=== PATIENT | female | born 1930 | race Caucasian/White ===

== ENCOUNTER 2018-02-01 00:43 | Inpatient (IN) | payer MEDICARE, OTHER ==
[~2018-02-01] VITALS: Ht 167.6 cm; Wt 80.0 kg
[2018-02-01 01:24] LABS: BASOPHILS % (AUTO) 0.4 % (0-1); EOSINOPHILS # (AUTO) 0.7 X10'3 (0-0.9); EOSINOPHILS % (AUTO) 6.4 % (0-6); HEMATOCRIT 39.6 % (35.0-45.0); HEMOGLOBIN 12.9 g/dl (12.0-16.0); LYMPHOCYTES # (AUTO) 2.2 X10'3 (1.1-4.8); MEAN CORPUSCULAR HEMOGLOBIN 29.1 PG (27.0-31.0); MEAN CORPUSCULAR HGB CONC 32.7 % (33.0-36.5); MEAN PLATELET VOLUME 11.3 FL (7.4-10.4); MONOCYTES # (AUTO) 0.9 X10'3 (0-0.9); MONOCYTES % (AUTO) 8.4 % (2-12); NEUTROPHILS # (AUTO) 7.1 X10'3 (1.8-7.7); NEUTROPHILS % (AUTO) 64.8 % (42-75); PLATELET COUNT 309 X10'3 (140-440); RED BLOOD COUNT 4.45 X10'6 (4.20-5.60); RED CELL DISTRIBUTION WIDTH 12.9 % (11.5-14.5); WHITE BLOOD COUNT 10.9 X10'3 (4.5-11.0)
[2018-02-01 01:31] LABS: PARTIAL THROMBOPLASTIN TIME 26 SECONDS (22-32)
[2018-02-01 01:37] LABS: ALANINE AMINOTRANSFERASE 18 U/L (12-78); ALBUMIN 3.7 G/DL (3.4-5.0); ALBUMIN/GLOBULIN RATIO 0.9 (1.1-1.5); ALKALINE PHOSPHATASE 114 IU/L (46-116); ANION GAP 18 (8-16); ASPARTATE AMINO TRANSFERASE 21 U/L (10-37); BILIRUBIN,TOTAL 0.4 MG/DL (0.1-1.0); BLOOD UREA NITROGEN 15 MG/DL (7-18); CALCIUM 9.7 MG/DL (8.5-10.1); CHLORIDE 101 MMOL/L (99-107); ETHANOL < 0.010 GM/DL (0.0-0.010); GLUCOSE 158 MG/DL (70-104); POTASSIUM 3.1 MMOL/L (3.5-5.1); SODIUM 143 MMOL/L (135-145); TOTAL CARBON DIOXIDE 23.9 MMOL/L (24-32); TOTAL PROTEIN 7.9 G/DL (6.4-8.2); eGFR 52 ML/MIN
[2018-02-01] MEDS ORDERED: levoFLOXACIN-Levaquin 750MG/D5 150 ML IV STA (03:14)
[2018-02-01] MEDS ORDERED: normal saline 1000ML IV soln IVB ONE ×2 (03:15→05:35)
[2018-02-01] MEDS ORDERED: potassium Cl 10 mEq/100mL bag IV ONE (03:15)
[2018-02-01 03:47] LABS: CLARITY,URINE SLIGHTLY CLOUDY (Clear); COLOR,URINE YELLOW (Yellow); GLUCOSE, URINE NEGATIVE (Neg); KETONES,URINE NEGATIVE (Neg); LEUKOCYTE ESTERASE ,URINE NEGATIVE (Neg); NITRITES, URINE NEGATIVE (Neg); OCCULT BLOOD,URINE NEGATIVE (Neg); PROTEIN,URINE 100 mg/dl (Neg); UROBILINOGEN,URINE 0.2 E.U/dL (0.2-1.0)
[2018-02-01] MEDS ORDERED: NITR100C PO ×2 (03:47→04:29)
[2018-02-01] MEDS ORDERED: OMEP20TA5 PO (03:49)
[2018-02-01 03:50] LABS: UA COLLECTION TYPE STRAIGHT CATH
[2018-02-01] MEDS ORDERED: AMLO5TAB10 (03:50)
[2018-02-01] MEDS ORDERED: CLOP75TA35 PO (03:50)
[2018-02-01] MEDS ORDERED: FERR325T28 PO (03:51)
[2018-02-01] MEDS ORDERED: POTA2TAB6 PO (03:52)
[2018-02-01] MEDS ORDERED: VITA1CAP19 PO (03:54)
[2018-02-01] MEDS ORDERED: MULT-16 PO (03:54)
[2018-02-01 03:55] LABS: AMORPHOUS URATES 1+; BACTERIA,URINE 2+ /HPF (Neg); RBC,URINE 0-2 /HPF (0-2); SQUAMOUS EPITHELIAL CELL,UR MODERATE /LPF (FEW)
[2018-02-01 03:56] LABS: WBC CLUMPS,URINE FEW /HPF (NEGATIVE)
[2018-02-01] MEDS ORDERED: DEXT1DRO6 OP (03:57)
[2018-02-01] MEDS ORDERED: CALC200T29 (03:59)
[2018-02-01] MEDS ORDERED: IBUP200C74 (04:00)
[2018-02-01] MEDS ORDERED: ACET500C5 PO (04:01)
[2018-02-01 04:05] LABS: GLUCOSE,CSF 80 MG/DL (40-75); TOTAL PROTEIN,CSF 63 MG/DL (30-60)
[2018-02-01] MEDS ORDERED: CLOT15CR10 TP (04:05)
[2018-02-01] MEDS ORDERED: FURO-150 PO (04:23)
[2018-02-01] MEDS ORDERED: SIMV20TA5 PO (04:24)
[2018-02-01] MEDS ORDERED: potassium 10mEq/100ml NS w/LIDOcaine (10mg/bag) IV ONE (04:25)
[2018-02-01] MEDS ORDERED: BUS15T (04:28)
[2018-02-01] MEDS ORDERED: DULO-31 PO (04:29)
[2018-02-01 04:50] LABS: APPEARANCE,CSF CLEAR; CSF RBC 8 /CU MM (0); CSF SUPERNATANT COLOR COLORLESS; CSF VOLUME 3.5 ML; CSF WBC CT 0 /CU MM (0-5); TUBE# COUNTED 4
[2018-02-01] MEDS ORDERED: diltiazem 5mg/ml 5ml inj. IV ONE (05:35)
[2018-02-01] MEDS ORDERED: thiamine inj. 100 MG in normal saline 100ml IV soln 99 ML IV ONE (05:55)
[2018-02-01] MEDS ORDERED: magnesium hydroxide 30ml (MOM) UD suspension PO PRN (06:00)
[2018-02-01] MEDS ORDERED: mag hydrox/Alum hydrox/simeth 30ml oral suspension PO PRN (06:00)
[2018-02-01] MEDS ORDERED: LORazepam 2 mg/ml vial IV PRN (06:05)
[2018-02-01] MEDS: normal saline 1000ml 1,000 ML IV SCH (07:13)
[2018-02-01] MEDS ORDERED: thiamine 100mg/ml 2ml inj. IV SCH (08:00)
[2018-02-01] MEDS: heparin, porcine 5000 units/ml vial SQ SCH ×2 (09:17→20:38)
[2018-02-02] MEDS: normal saline 1000ml 1,000 ML IV SCH ×2 (02:10→10:19)
[2018-02-02 06:58] LABS: BASOPHILS % (AUTO) 0.1 % (0-1); EOSINOPHILS % (AUTO) 0 % (0-6); HEMATOCRIT 35.4 % (35.0-45.0); HEMOGLOBIN 12.1 g/dl (12.0-16.0); LYMPHOCYTES # (AUTO) 0.9 X10'3 (1.1-4.8); LYMPHOCYTES % (AUTO) 4.3 % (21-51); MEAN CORPUSCULAR HEMOGLOBIN 30.2 PG (27.0-31.0); MEAN CORPUSCULAR HGB CONC 34.1 % (33.0-36.5); MEAN CORPUSCULAR VOLUME 88.7 FL (78-98); MEAN PLATELET VOLUME 12.2 FL (7.4-10.4); MONOCYTES % (AUTO) 4.9 % (2-12); NEUTROPHILS # (AUTO) 18.4 X10'3 (1.8-7.7); NEUTROPHILS % (AUTO) 90.7 % (42-75); PLATELET COUNT 251 X10'3 (140-440); RED BLOOD COUNT 3.99 X10'6 (4.20-5.60); RED CELL DISTRIBUTION WIDTH 13.8 % (11.5-14.5); WHITE BLOOD COUNT 20.3 X10'3 (4.5-11.0)
[2018-02-02 07:15] VITALS: BP 128/74
[2018-02-02 07:19] LABS: ALANINE AMINOTRANSFERASE 23 U/L (12-78); ALBUMIN 3.2 G/DL (3.4-5.0); ALBUMIN/GLOBULIN RATIO 0.9 (1.1-1.5); ALKALINE PHOSPHATASE 68 IU/L (46-116); ANION GAP 12 (8-16); ASPARTATE AMINO TRANSFERASE 20 U/L (10-37); BILIRUBIN,TOTAL 0.6 MG/DL (0.1-1.0); BLOOD UREA NITROGEN 10 MG/DL (7-18); BUN/CREATININE RATIO 15.2 (6.6-38.0); CALCIUM 8.6 MG/DL (8.5-10.1); CHLORIDE 105 MMOL/L (99-107); CREATININE 0.66 MG/DL (0.40-0.90); GLUCOSE 128 MG/DL (70-104); POTASSIUM 3.3 MMOL/L (3.5-5.1); SODIUM 142 MMOL/L (135-145); TOTAL CARBON DIOXIDE 24.8 MMOL/L (24-32); TOTAL PROTEIN 6.9 G/DL (6.4-8.2); eGFR 84 ML/MIN
[2018-02-02] MEDS ORDERED: magnesium 4gm in 100ml NS 100 ML IV PRN (07:55)
[2018-02-02] MEDS ORDERED: potassium Cl 20 mEq SR tablet PO PRN ×2 (07:55→18:40)
[2018-02-02] MEDS ORDERED: potassium Cl 40MEQ/NS 500ml 500 ML IV PRN ×4 (07:55→18:40)
[2018-02-02] MEDS ORDERED: magnesium 2GM in 50ml NS 50 ML IV PRN (07:55)
[2018-02-02] MEDS ORDERED: magnesium Cl slow-release 64mg tablet PO PRN (07:55)
[2018-02-02] MEDS ORDERED: acetaminophen 325mg rectal suppository RC PRN (08:05)
[2018-02-02 10:00] VITALS: BP 155/91
[2018-02-02] MEDS: cefTRIAXone 1g/NS 100ml IVPB 100 ML IV SCH (10:19)
[2018-02-02] MEDS: heparin, porcine 5000 units/ml vial SQ SCH ×2 (10:20→19:47)
[2018-02-02] MEDS ORDERED: polyvinyl alcohol ophthalmic drops 15ml bottle EACHEYE PRN (14:30)
[2018-02-02] MEDS: amLODIPine 5mg tablet PO SCH (16:17)
[2018-02-02 18:00] VITALS: BP 127/73
[2018-02-02] MEDS: busPIRone 15mg tablet PO SCH (19:47)
[2018-02-02] MEDS: duloxetine 30mg CAPSULE.DR PO SCH (20:37)
[2018-02-02 22:00] VITALS: BP 128/68
[2018-02-03 04:39] LABS: BASOPHILS # (AUTO) 0.2 X10'3 (0-0.2); BASOPHILS % (AUTO) 0.8 % (0-1); EOSINOPHILS # (AUTO) 0.1 X10'3 (0-0.9); EOSINOPHILS % (AUTO) 0.3 % (0-6); HEMATOCRIT 36.5 % (35.0-45.0); HEMOGLOBIN 12.4 g/dl (12.0-16.0); LYMPHOCYTES # (AUTO) 1.6 X10'3 (1.1-4.8); LYMPHOCYTES % (AUTO) 8.6 % (21-51); MEAN CORPUSCULAR HEMOGLOBIN 29.9 PG (27.0-31.0); MEAN CORPUSCULAR HGB CONC 33.8 % (33.0-36.5); MEAN CORPUSCULAR VOLUME 88.3 FL (78-98); MEAN PLATELET VOLUME 13.1 FL (7.4-10.4); MONOCYTES # (AUTO) 1.4 X10'3 (0-0.9); MONOCYTES % (AUTO) 7.3 % (2-12); NEUTROPHILS # (AUTO) 15.6 X10'3 (1.8-7.7); PLATELET COUNT 253 X10'3 (140-440); RED BLOOD COUNT 4.14 X10'6 (4.20-5.60); RED CELL DISTRIBUTION WIDTH 12.9 % (11.5-14.5); WHITE BLOOD COUNT 18.9 X10'3 (4.5-11.0)
[2018-02-03 05:00] VITALS: BP_SYST 148; BP_SYST 150; BP_DIAS 89; BP_DIAS 91
[2018-02-03 05:00] LABS: ALANINE AMINOTRANSFERASE 22 U/L (12-78); ALBUMIN 3.3 G/DL (3.4-5.0); ALBUMIN/GLOBULIN RATIO 0.8 (1.1-1.5); ALKALINE PHOSPHATASE 68 IU/L (46-116); ANION GAP 11 (8-16); ASPARTATE AMINO TRANSFERASE 24 U/L (10-37); BILIRUBIN,TOTAL 0.7 MG/DL (0.1-1.0); BLOOD UREA NITROGEN 12 MG/DL (7-18); BUN/CREATININE RATIO 20.3 (6.6-38.0); CALCIUM 8.9 MG/DL (8.5-10.1); CHLORIDE 106 MMOL/L (99-107); CREATININE 0.59 MG/DL (0.40-0.90); GLUCOSE 115 MG/DL (70-104); MAGNESIUM 1.7 MG/DL (1.5-2.4); POTASSIUM 3.4 MMOL/L (3.5-5.1); SODIUM 141 MMOL/L (135-145); TOTAL CARBON DIOXIDE 24.3 MMOL/L (24-32); TOTAL PROTEIN 7.3 G/DL (6.4-8.2); eGFR > 90 ML/MIN
[2018-02-03] MEDS: potassium Cl 20 mEq SR tablet PO PRN ×3 (05:13→15:14)
[2018-02-03] MEDS: heparin, porcine 5000 units/ml vial SQ SCH ×2 (09:37→22:55)
[2018-02-03] MEDS: normal saline 1000ml 1,000 ML IV SCH (09:37)
[2018-02-03] MEDS: pantoprazole 40mg Tablet.DR PO SCH (09:38)
[2018-02-03] MEDS: duloxetine 30mg CAPSULE.DR PO SCH (09:38)
[2018-02-03] MEDS: cefTRIAXone 1g/NS 100ml IVPB 100 ML IV SCH (09:38)
[2018-02-03] MEDS: clopidogrel 75mg tablet PO SCH (09:38)
[2018-02-03] MEDS: atorvastatin 10mg tablet PO SCH (09:38)
[2018-02-03] MEDS: amLODIPine 5mg tablet PO SCH (09:38)
[2018-02-03] MEDS: busPIRone 15mg tablet PO SCH ×2 (09:38→22:55)
[2018-02-03 18:00] VITALS: BP 147/77
[2018-02-03] MEDS: Protein Shake (high protein) 240ml (8oz) cup PO SCH (18:00)
[2018-02-03 22:00] VITALS: BP 140/89
[2018-02-03] MEDS: lactobacillus rhamnosus 10,000 MMU CELLS/CAPSULE PO SCH (22:55)
[2018-02-04 05:00] VITALS: BP 148/85
[2018-02-04 07:11] LABS: ALANINE AMINOTRANSFERASE 24 U/L (12-78); ALBUMIN/GLOBULIN RATIO 0.8 (1.1-1.5); ALKALINE PHOSPHATASE 65 IU/L (46-116); ANION GAP 12 (8-16); ASPARTATE AMINO TRANSFERASE 35 U/L (10-37); BILIRUBIN,TOTAL 0.9 MG/DL (0.1-1.0); BLOOD UREA NITROGEN 12 MG/DL (7-18); BUN/CREATININE RATIO 25.5 (6.6-38.0); CALCIUM 8.9 MG/DL (8.5-10.1); CHLORIDE 107 MMOL/L (99-107); CREATININE 0.47 MG/DL (0.40-0.90); GLUCOSE 114 MG/DL (70-104); MAGNESIUM 1.7 MG/DL (1.5-2.4); POTASSIUM 3.8 MMOL/L (3.5-5.1); SODIUM 143 MMOL/L (135-145); TOTAL CARBON DIOXIDE 23.6 MMOL/L (24-32); eGFR > 90 ML/MIN
[2018-02-04 08:00] LABS: BASOPHILS % (AUTO) 0.2 % (0-1); EOSINOPHILS # (AUTO) 0.3 X10'3 (0-0.9); HEMATOCRIT 35.1 % (35.0-45.0); HEMOGLOBIN 12.1 g/dl (12.0-16.0); MEAN CORPUSCULAR HEMOGLOBIN 30.4 PG (27.0-31.0); MEAN CORPUSCULAR HGB CONC 34.3 % (33.0-36.5); MEAN CORPUSCULAR VOLUME 88.4 FL (78-98); MEAN PLATELET VOLUME 11.4 FL (7.4-10.4); MONOCYTES # (AUTO) 1.1 X10'3 (0-0.9); MONOCYTES % (AUTO) 6.3 % (2-12); NEUTROPHILS # (AUTO) 14.3 X10'3 (1.8-7.7); NEUTROPHILS % (AUTO) 85.5 % (42-75); PLATELET COUNT 228 X10'3 (140-440); RED BLOOD COUNT 3.97 X10'6 (4.20-5.60); RED CELL DISTRIBUTION WIDTH 14.5 % (11.5-14.5); WHITE BLOOD COUNT 16.7 X10'3 (4.5-11.0)
[2018-02-04] MEDS: Protein Shake (high protein) 240ml (8oz) cup PO SCH ×3 (08:00→19:26)
[2018-02-04 08:48] LABS: LARGE PLATELETS FEW; PLATELET ESTIMATE NORMAL
[2018-02-04] MEDS: busPIRone 15mg tablet PO SCH ×2 (09:45→20:14)
[2018-02-04] MEDS: duloxetine 30mg CAPSULE.DR PO SCH (09:45)
[2018-02-04] MEDS: amLODIPine 5mg tablet PO SCH (09:45)
[2018-02-04] MEDS: atorvastatin 10mg tablet PO SCH (09:46)
[2018-02-04] MEDS: pantoprazole 40mg Tablet.DR PO SCH (09:46)
[2018-02-04] MEDS: lactobacillus rhamnosus 10,000 MMU CELLS/CAPSULE PO SCH ×2 (09:46→20:14)
[2018-02-04] MEDS: heparin, porcine 5000 units/ml vial SQ SCH ×2 (09:46→20:17)
[2018-02-04 10:00] VITALS: BP 148/85
[2018-02-04] MEDS: clopidogrel 75mg tablet PO SCH (10:02)
[2018-02-04] MEDS: cefTRIAXone 1g/NS 100ml IVPB 100 ML IV SCH (10:04)
[2018-02-04] MEDS: acetaminophen 325mg tablet PO PRN (10:36)
[2018-02-04 18:00] VITALS: BP 150/84
[2018-02-04] MEDS: normal saline 1000ml 1,000 ML IV SCH (18:40)
[2018-02-04 22:32] VITALS: BP 146/72
[2018-02-05] MEDS: acetaminophen 325mg tablet PO PRN (04:41)
[2018-02-05 05:00] VITALS: BP 121/47
[2018-02-05 06:16] LABS: BASOPHILS % (AUTO) 0.2 % (0-1); EOSINOPHILS # (AUTO) 0.6 X10'3 (0-0.9); EOSINOPHILS % (AUTO) 4.7 % (0-6); HEMATOCRIT 34.9 % (35.0-45.0); HEMOGLOBIN 11.8 g/dl (12.0-16.0); LYMPHOCYTES # (AUTO) 1.4 X10'3 (1.1-4.8); LYMPHOCYTES % (AUTO) 11.1 % (21-51); MEAN CORPUSCULAR HGB CONC 33.8 % (33.0-36.5); MEAN CORPUSCULAR VOLUME 88.8 FL (78-98); MEAN PLATELET VOLUME 12.2 FL (7.4-10.4); MONOCYTES # (AUTO) 0.8 X10'3 (0-0.9); NEUTROPHILS # (AUTO) 9.9 X10'3 (1.8-7.7); PLATELET COUNT 227 X10'3 (140-440); RED BLOOD COUNT 3.93 X10'6 (4.20-5.60); RED CELL DISTRIBUTION WIDTH 14.1 % (11.5-14.5); WHITE BLOOD COUNT 12.6 X10'3 (4.5-11.0)
[2018-02-05 06:34] LABS: ALANINE AMINOTRANSFERASE 22 U/L (12-78); ALBUMIN 2.7 G/DL (3.4-5.0); ALBUMIN/GLOBULIN RATIO 0.7 (1.1-1.5); ALKALINE PHOSPHATASE 64 IU/L (46-116); ANION GAP 9 (8-16); ASPARTATE AMINO TRANSFERASE 23 U/L (10-37); BILIRUBIN,TOTAL 0.6 MG/DL (0.1-1.0); BLOOD UREA NITROGEN 9 MG/DL (7-18); BUN/CREATININE RATIO 14.5 (6.6-38.0); CALCIUM 8.5 MG/DL (8.5-10.1); CHLORIDE 108 MMOL/L (99-107); CREATININE 0.62 MG/DL (0.40-0.90); GLUCOSE 115 MG/DL (70-104); MAGNESIUM 1.6 MG/DL (1.5-2.4); SODIUM 142 MMOL/L (135-145); TOTAL CARBON DIOXIDE 24.9 MMOL/L (24-32); TOTAL PROTEIN 6.5 G/DL (6.4-8.2); eGFR > 90 ML/MIN
[2018-02-05 06:36] LABS: POTASSIUM 2.9 MMOL/L (3.5-5.1)
[2018-02-05 07:43] LABS: LARGE PLATELETS FEW; PLATELET ESTIMATE NORMAL
[2018-02-05] MEDS: potassium Cl 20 mEq SR tablet PO PRN ×3 (09:00→16:51)
[2018-02-05] MEDS: busPIRone 15mg tablet PO SCH ×2 (09:20→20:11)
[2018-02-05] MEDS: pantoprazole 40mg Tablet.DR PO SCH (09:20)
[2018-02-05] MEDS: heparin, porcine 5000 units/ml vial SQ SCH ×2 (09:20→20:12)
[2018-02-05] MEDS: atorvastatin 10mg tablet PO SCH (09:20)
[2018-02-05] MEDS: clopidogrel 75mg tablet PO SCH (09:20)
[2018-02-05] MEDS: amLODIPine 5mg tablet PO SCH (09:20)
[2018-02-05] MEDS: Protein Shake (high protein) 240ml (8oz) cup PO SCH ×3 (09:20→18:00)
[2018-02-05] MEDS: cefTRIAXone 1g/NS 100ml IVPB 100 ML IV SCH (09:20)
[2018-02-05] MEDS: lactobacillus rhamnosus 10,000 MMU CELLS/CAPSULE PO SCH ×2 (09:20→20:11)
[2018-02-05] MEDS: normal saline 1000ml 1,000 ML IV SCH ×2 (09:57→16:45)
[2018-02-05 10:00] VITALS: BP 129/60
[2018-02-05] MEDS: HYDROcodone/acetaminophen 5mg/325mg tablet PO PRN (13:20)
[2018-02-05 18:38] VITALS: BP 149/93
[2018-02-05] MEDS: duloxetine 30mg CAPSULE.DR PO SCH (20:11)
[2018-02-05 22:07] VITALS: BP 140/87
[2018-02-06] MEDS: HYDROcodone/acetaminophen 5mg/325mg tablet PO PRN (03:32)
[2018-02-06 05:53] LABS: BASOPHILS # (AUTO) 0.1 X10'3 (0-0.2); BASOPHILS % (AUTO) 0.4 % (0-1); EOSINOPHILS # (AUTO) 0.6 X10'3 (0-0.9); EOSINOPHILS % (AUTO) 5.6 % (0-6); HEMATOCRIT 34.7 % (35.0-45.0); HEMOGLOBIN 11.6 g/dl (12.0-16.0); LYMPHOCYTES # (AUTO) 1.8 X10'3 (1.1-4.8); LYMPHOCYTES % (AUTO) 15.2 % (21-51); MEAN CORPUSCULAR HEMOGLOBIN 30.2 PG (27.0-31.0); MEAN CORPUSCULAR HGB CONC 33.5 % (33.0-36.5); MEAN CORPUSCULAR VOLUME 90.2 FL (78-98); MONOCYTES # (AUTO) 0.8 X10'3 (0-0.9); MONOCYTES % (AUTO) 6.7 % (2-12); NEUTROPHILS # (AUTO) 8.4 X10'3 (1.8-7.7); NEUTROPHILS % (AUTO) 72.1 % (42-75); PLATELET COUNT 251 X10'3 (140-440); RED BLOOD COUNT 3.85 X10'6 (4.20-5.60); RED CELL DISTRIBUTION WIDTH 14.3 % (11.5-14.5); WHITE BLOOD COUNT 11.6 X10'3 (4.5-11.0)
[2018-02-06 06:00] VITALS: BP 137/79
[2018-02-06 06:10] LABS: ALANINE AMINOTRANSFERASE 24 U/L (12-78); ALBUMIN 2.7 G/DL (3.4-5.0); ALBUMIN/GLOBULIN RATIO 0.8 (1.1-1.5); ALKALINE PHOSPHATASE 61 IU/L (46-116); ANION GAP 8 (8-16); ASPARTATE AMINO TRANSFERASE 16 U/L (10-37); BILIRUBIN,TOTAL 0.5 MG/DL (0.1-1.0); BLOOD UREA NITROGEN 7 MG/DL (7-18); BUN/CREATININE RATIO 10.6 (6.6-38.0); CALCIUM 8.6 MG/DL (8.5-10.1); CHLORIDE 109 MMOL/L (99-107); CREATININE 0.66 MG/DL (0.40-0.90); GLUCOSE 105 MG/DL (70-104); MAGNESIUM 1.5 MG/DL (1.5-2.4); POTASSIUM 4.1 MMOL/L (3.5-5.1); SODIUM 144 MMOL/L (135-145); TOTAL CARBON DIOXIDE 26.6 MMOL/L (24-32); TOTAL PROTEIN 6.3 G/DL (6.4-8.2); eGFR 84 ML/MIN
[2018-02-06] MEDS: pantoprazole 40mg Tablet.DR PO SCH (07:33)
[2018-02-06] MEDS: lactobacillus rhamnosus 10,000 MMU CELLS/CAPSULE PO SCH ×2 (07:34→23:32)
[2018-02-06] MEDS: amLODIPine 5mg tablet PO SCH (07:35)
[2018-02-06] MEDS: clopidogrel 75mg tablet PO SCH (07:35)
[2018-02-06] MEDS: atorvastatin 10mg tablet PO SCH (07:36)
[2018-02-06] MEDS: busPIRone 15mg tablet PO SCH ×2 (07:37→23:32)
[2018-02-06] MEDS: heparin, porcine 5000 units/ml vial SQ SCH ×2 (07:38→23:33)
[2018-02-06] MEDS: cefTRIAXone 1g/NS 100ml IVPB 100 ML IV SCH (07:45)
[2018-02-06] MEDS: Protein Shake (high protein) 240ml (8oz) cup PO SCH ×3 (08:13→18:00)
[2018-02-06 10:00] VITALS: BP 137/74
[2018-02-06] MEDS ORDERED: LEVO500T2 PO (11:59)
[2018-02-06] MEDS: normal saline 1000ml 1,000 ML IV SCH ×2 (12:53→23:47)
[2018-02-06] MEDS ORDERED: METO25TA6 PO (15:12)
[2018-02-06 19:00] VITALS: BP 149/83
[2018-02-06] MEDS: duloxetine 30mg CAPSULE.DR PO SCH (23:32)
[2018-02-07 06:00] VITALS: BP 145/76
[2018-02-07 06:13] LABS: MAGNESIUM 1.6 MG/DL (1.5-2.4); POTASSIUM 3.7 MMOL/L (3.5-5.1)
[2018-02-07] MEDS: normal saline 1000ml 1,000 ML IV SCH (06:53)
[2018-02-07] MEDS: pantoprazole 40mg Tablet.DR PO SCH (07:30)
[2018-02-07] MEDS: busPIRone 15mg tablet PO SCH (08:00)
[2018-02-07] MEDS: atorvastatin 10mg tablet PO SCH (08:00)
[2018-02-07] MEDS: lactobacillus rhamnosus 10,000 MMU CELLS/CAPSULE PO SCH (08:00)
[2018-02-07] MEDS: Protein Shake (high protein) 240ml (8oz) cup PO SCH ×2 (08:00→12:45)
[2018-02-07] MEDS: clopidogrel 75mg tablet PO SCH (08:00)
[2018-02-07] MEDS: amLODIPine 5mg tablet PO SCH (08:00)
[2018-02-07] MEDS: cefTRIAXone 1g/NS 100ml IVPB 100 ML IV SCH (08:48)
[2018-02-07] MEDS: heparin, porcine 5000 units/ml vial SQ SCH (08:56)
[2018-02-07] MEDS: acetaminophen 325mg tablet PO PRN (08:58)
[2018-02-07 10:00] VITALS: BP 130/64
== END 2018-02-07 14:45 | disposition home or self-care (01) | DRG 871 ==
LOC: ER 00:44 → ED HOLD 05:57 → EDBEDREQ 02-02 06:43 → ORTHO 4S 02-02 07:44
PROVIDERS: ADMIT Internal Medicine; ATTEND Internal Medicine
PROC: 009U3ZX Drainage of Spinal Canal, Percutaneous Approach, Diagnostic (ICD-10-PCS; principal; 2018-02-01)
DX: A41.9 Sepsis, unspecified organism (principal); G93.41 Metabolic encephalopathy; E86.0 Dehydration; D64.9 Anemia, unspecified; N39.0 Urinary tract infection, site not specified; F03.90 Unspecified dementia, unspecified severity, without behavioral disturbance, psychotic disturbance, mood disturbance, and anxiety; E87.6 Hypokalemia; I25.10 Atherosclerotic heart disease of native coronary artery without angina pectoris; R32 Unspecified urinary incontinence; Z66 Do not resuscitate; I10 Essential (primary) hypertension; G89.29 Other chronic pain; M54.9 Dorsalgia, unspecified; Z79.899 Other long term (current) drug therapy; Z79.02 Long term (current) use of antithrombotics/antiplatelets
CPT/HCPCS: 36415; 62270; 70450; 71045; 80053; 80320; 81001; 82945; 82948; 83605; 83735; 84132; 84157; 85025; 85610; 85730; 87015; 87040; 87070; 87088; 89051; 92616; 93005; 96365; 96366; 96368; 97110; 97116; 97162; 97530; 99285; J0696; J1644; J1956; J3411; J3480; J3490; J7030